=== PATIENT | female | born 1970 | race Caucasian/White ===

== ENCOUNTER 2021-07-19 23:08 | Inpatient (IN) | payer MEDICAID, SELFPAY ==
[~2021-07-19] VITALS: Ht 154.9 cm; Wt 71.7 kg
[2021-07-19 23:36] VITALS: BP_SYST 132
--- NOTE | 2021-07-20 00:21 | NUR ---
Patient ambulatory to bed 1 for evaluation
--- NOTE | 2021-07-20 00:23 | NUR ---
Patient BIB by family from home. C/O epigastric pain x 1 day. Patient reported, had epigastric pain, radiate to upper back, and vomitting since 00.30 AM yesterday.
[2021-07-20] MEDS ORDERED: NACL 0.9% 1,000 ML IV ONE (00:30)
[2021-07-20 01:14] LABS: BILIRUBIN,URINE NEGATIVE (NEGATIVE); BLOOD, URINE NEGATIVE (NEGATIVE); CLARITY/URINE CLEAR (CLEAR); COLOR,URINE YELLOW (YELLOW); GLUCOSE,URINE NEGATIVE (NEGATIVE); KETONES,URINE NEGATIVE (NEGATIVE); LEUKOCYTE ESTERASE ,URINE NEGATIVE (NEGATIVE); NITRITE, URINE NEGATIVE (NEGATIVE); PROTEIN URINE NEGATIVE (NEGATIVE)
--- NOTE | 2021-07-20 01:18 | NUR ---
ER Dr. Jacobson at bedside examining patient.
[2021-07-20 01:25] LABS: CREATININE 0.55 mg/dL (0.55-1.30); POTASSIUM 5.6 mmol/L (3.5-5.1)
[2021-07-20] MEDS ORDERED: PROCHLORPERAZINE EDISYLATE 10 MG/2 ML VIAL IVP ONE (01:30)
[2021-07-20] MEDS ORDERED: MORPHINE 4 MG INJ. 4 MG/ML VIAL IVP ONE (01:30)
[2021-07-20] MEDS ORDERED: PANTOPRAZOLE SODIUM 40 MG/VIAL (PROTONIX) IVP ONE (01:30)
[2021-07-20 01:39] LABS: ALBUMIN 4.1 g/dL (3.4-4.8); TOTAL BILIRUBIN 3.4 mg/dL (0.0-1.0)
[2021-07-20 02:43] LABS: BASOPHILS % (AUTO) 0.3 % (0.0-2.0); EOSINOPHILS # (AUTO) 0.1 K/uL (0.0-0.4); HEMATOCRIT 38.1 % (36-48); HEMOGLOBIN 13.4 g/dL (12.0-16.0); LYMPHOCYTES # (AUTO) 0.7 K/uL (1.0-5.5); LYMPHOCYTES % (AUTO) 11.5 % (20.5-51.5); MEAN CORPUSCULAR HEMOGLOBIN 30 pg (27-31); MEAN CORPUSCULAR HGB CONC 35 % (32-36); MEAN CORPUSCULAR VOLUME 84 fL (79.0-98.0); MONOCYTES # (AUTO) 0.5 K/uL (0.0-1.0); MONOCYTES % (AUTO) 9.4 % (1.7-9.3); NEUTROPHILS # (AUTO) 4.4 K/uL (1.8-7.7); NEUTROPHILS % (AUTO) 77.8 % (40.0-70.0); PLATELET COUNT (AUTO) 195 K/uL (130-430); RED BLOOD CELL COUNT(AUTO) 4.51 MIL/uL (4.2-6.2); RED CELL DISTRIBUTION WIDTH 13.9 % (9.0-15.0); WHITE BLOOD COUNT (AUTO) 5.7 K/uL (4.8-10.8)
--- NOTE | 2021-07-20 02:48 | NUR ---
Dr. Gallegos ultrasound at bedside.
--- NOTE | 2021-07-20 03:45 | NUR ---
Patient resting quietly. No acute distress noted. Vital signs within normal range.
--- NOTE | 2021-07-20 04:46 | NUR ---
Dr. Jacobson at bedside to explain results and treatment plans -admission.
[2021-07-20] MEDS ORDERED: ONDANSETRON HCL 4 MG/2 ML VIAL IVP PRN (05:15)
[2021-07-20] MEDS ORDERED: HYDROmorphone 1 MG/ML INJ. CARTRIDGE IVP PRN (05:15)
[2021-07-20] MEDS: LR 500 ML IV SCH ×3 (05:15→20:15)
--- NOTE | 2021-07-20 05:25 | NUR ---
COVID-19 swabs collected and sent to lab.
--- NOTE | 2021-07-20 06:50 | NUR ---
Patient resting quietly. No acute distress noted. Vital signs within normal range.
--- NOTE | 2021-07-20 07:06 | NUR ---
Report given to JOSE Gaytan and endorse care of patient.
--- NOTE | 2021-07-20 07:26 | NUR ---
RESUMING CARE FROM JANUARY, RN. PT IS STABLE, AWAKE, FAMILY AT BEDSIDE, ADMITTED, AWAITING COVID TEST RESULT TO BE TRANSFERRED TO THE FLOOR.
--- NOTE | 2021-07-20 08:30 | NUR ---
Called charge nurse Joyce for bed placement, stated she will call us back.
--- NOTE | 2021-07-20 09:04 | NUR ---
SECOND CALL FOR BED ASSIGNMENT
--- NOTE | 2021-07-20 09:10 | NUR ---
RECEIVED BED ASSIGNMENT. WILL GET PT READY FOR TRANSFER TO FLOOR
[2021-07-20 09:59] LABS: BASOPHILS % (AUTO) 0.5 % (0.0-2.0); EOSINOPHILS # (AUTO) 0.1 K/uL (0.0-0.4); EOSINOPHILS % (AUTO) 1.7 % (0.0-4.0); HEMATOCRIT 37.3 % (36-48); HEMOGLOBIN 13.2 g/dL (12.0-16.0); LYMPHOCYTES # (AUTO) 0.6 K/uL (1.0-5.5); LYMPHOCYTES % (AUTO) 17.5 % (20.5-51.5); MEAN CORPUSCULAR HEMOGLOBIN 30 pg (27-31); MEAN CORPUSCULAR HGB CONC 35 % (32-36); MEAN CORPUSCULAR VOLUME 85 fL (79.0-98.0); MONOCYTES # (AUTO) 0.4 K/uL (0.0-1.0); MONOCYTES % (AUTO) 10.9 % (1.7-9.3); NEUTROPHILS # (AUTO) 2.5 K/uL (1.8-7.7); NEUTROPHILS % (AUTO) 69.4 % (40.0-70.0); PLATELET COUNT (AUTO) 189 K/uL (130-430); RED CELL DISTRIBUTION WIDTH 14.5 % (9.0-15.0); WHITE BLOOD COUNT (AUTO) 3.7 K/uL (4.8-10.8)
--- NOTE | 2021-07-20 10:08 | NUR ---
REPORT GIVEN TO JOSE SINGH. PT IS STABLE, AAOx3, FAMILY AT BEDSIDE. PT TO TRANSFER TO [facility], COVID NEGATIVE, DENIES PAIN AT THIS TIME.
[2021-07-20 10:11] LABS: CALCIUM 8.6 mg/dL (8.4-11.0); CREATININE 0.63 mg/dL (0.55-1.30); POTASSIUM 3.6 mmol/L (3.5-5.1)
[2021-07-20 10:18] LABS: ALBUMIN 3.8 g/dL (3.4-4.8); TOTAL BILIRUBIN 3.4 mg/dL (0.0-1.0)
--- NOTE | 2021-07-20 10:38 | NUR ---
CONSULTATION PAGED/CALLED Reason for Consultation: [] GS Person Who was Notified: [] JENNIFER Consulting Physician: [] DR CHEN Virtual Assistant For [employer] Specialty: [] GEN SURGEON Ordering Physician: [] DR WILEY
[2021-07-20 10:42] VITALS: BP_SYST 147
--- NOTE | 2021-07-20 10:51 | NUR ---
CONSULTATION PAGED/CALLED Reason for Consultation: [] ACUTE PANCREATITIS Person Who was Notified: [] LEFT A VOICE MESSAGE IN THE OFFICE Consulting Physician: [] DR AVALOS ([id number] Town Manager Specialty: [] Ordering Physician: [] Addendum: 07/20/21 at 1059 by Kait Musa MT/ CONS SPECIALTY : IGNACIA ORDERING PHYSICIAN: DR WILEY Addendum: 07/20/21 at 1306 by Kait Musa MT/ PUT A CALL TO DR AVALOS WITH THE EXCHANGE. SPOKE TO
--- NOTE | 2021-07-20 12:31 | NUR ---
INFORMED JOSE SINGH THAT US ABD WILL BE DONE AT 1315. SPOKE TO SURAJ.
--- NOTE | 2021-07-20 14:52 | NUR ---
got to the floor via gurney, walked steady gait to the bed, denied abdominal pain, asking for food. Clear liquid offered. Lives with daughter, Tere, the main traffic operator, from whom all info obtained. Patient is Paraguayan speaking only MRI abdomen ordered, declined. " cant stand enclosed area, had it done before. Refused to get medicated with Ativan when suggested US abdomen done at the bedside, and ivf initiated at this time.
[2021-07-20 17:39] VITALS: BP_SYST 138
[2021-07-20 19:00] VITALS: BP_SYST 122
--- NOTE | 2021-07-20 19:15 | NUR ---
change of shift.pt.presents quiescent affect;calm,resting.language barrier extant;belarusian.pt.presents iv access intact;location rt.forearm. pt.capable to reposition self/ambulate unassisted.general status stable.respiratory status stable;unlabored@room air.call light/telephone w/in access of the pt.
[2021-07-20 20:00] VITALS: BP_SYST 122
--- NOTE | 2021-07-20 20:00 | NUR ---
pt.assessed.v/s assessed values wnl.no c/o pain,nausea.iv access intact iv fluids infusing.i have apprised the pt.that snacks/ beverages are available w/in the shift;w/in clear liquids parameters.no requests posited@this hour.pt.capable to reposition self. call light/telephone w/in access of the pt.
--- NOTE | 2021-07-20 22:00 | NUR ---
pt.assessed.pt.presents quiescent affect;calm,somnolent.per flacc pain mgx pt.absent facial grimaces/body posturing. iv access intact iv fluids infusing.pt capable to reposition self.call light/telephone w/in access of the pt.
[2021-07-21] VITALS: BP_SYST 126
--- NOTE | 2021-07-21 | NUR ---
pt.assessed.v/s assessed values wnl.no c/o pain,nausea.no requests posited@this hour.iv access intact iv fluids infusing. pt.capable to reposition self.call light/telephone w/in access of the pt.
[2021-07-21] MEDS: LR 500 ML IV SCH ×5 (01:15→21:15)
--- NOTE | 2021-07-21 02:00 | NUR ---
pt.assessed.pt.presents quiescent affect;calm,somnolent.per flacc pain mgx pt.absent facial grimaces/body posturing.iv access intact iv fluids infusing.pt.capable to reposition self.call light/telephone w/in access of the pt.
--- NOTE | 2021-07-21 04:00 | NUR ---
pt.assesed.pt.somnolent.iv fluids infusing.pt.capable to reposition self.call light/telephone w/in access of the pt.
--- NOTE | 2021-07-21 06:51 | NUR ---
pt.assessed.pt.presents quiescent affect;calm,resting.no c/o pain,nausea.diet status npo re-iterated to the pt. pt.to submit hida-scan.pt.capable to reposition self.call light/telephone w/in access of the pt.
[2021-07-21 08:03] LABS: BASOPHILS % (AUTO) 0.5 % (0.0-2.0); EOSINOPHILS # (AUTO) 0.1 K/uL (0.0-0.4); HEMATOCRIT 37.8 % (36-48); HEMOGLOBIN 13.6 g/dL (12.0-16.0); LYMPHOCYTES # (AUTO) 0.9 K/uL (1.0-5.5); LYMPHOCYTES % (AUTO) 25.2 % (20.5-51.5); MEAN CORPUSCULAR HEMOGLOBIN 30 pg (27-31); MEAN CORPUSCULAR HGB CONC 36 % (32-36); MEAN CORPUSCULAR VOLUME 85 fL (79.0-98.0); MONOCYTES # (AUTO) 0.3 K/uL (0.0-1.0); MONOCYTES % (AUTO) 7.6 % (1.7-9.3); NEUTROPHILS # (AUTO) 2.3 K/uL (1.8-7.7); NEUTROPHILS % (AUTO) 64.7 % (40.0-70.0); PLATELET COUNT (AUTO) 183 K/uL (130-430); RED BLOOD CELL COUNT(AUTO) 4.47 MIL/uL (4.2-6.2); RED CELL DISTRIBUTION WIDTH 14.1 % (9.0-15.0); WHITE BLOOD COUNT (AUTO) 3.6 K/uL (4.8-10.8)
[2021-07-21 08:15] VITALS: BP_SYST 134
[2021-07-21 08:54] LABS: PROTHROMBIN TIME 11.1 SECS (9.5-12.5)
[2021-07-21 09:43] LABS: CALCIUM 8.7 mg/dL (8.4-11.0); CREATININE 0.63 mg/dL (0.55-1.30); POTASSIUM 3.3 mmol/L (3.5-5.1)
[2021-07-21 09:59] LABS: ALBUMIN 3.8 g/dL (3.4-4.8)
[2021-07-21 10:09] LABS: TOTAL BILIRUBIN 1.4 mg/dL (0.0-1.0)
[2021-07-21] MEDS ORDERED: POTASSIUM CHLORIDE 40 MEQ, LIDOCAINE JECT 2% PF 100 MG 50 MG in NS 250 ML IV ONE (12:30)
[2021-07-21 17:05] VITALS: BP_SYST 146
--- NOTE | 2021-07-21 18:58 | NUR ---
End of shift: Patient is NPo during the shift for Hida scan, Dilaudid was given prn for headache, Potassium placement given. Hida scan done. Denies any pain, nausea/vomoting. Surgery seen patient. Pending lap irving on Friday. Endorse next shift to continue plan of care.
[2021-07-21 23:07] VITALS: BP_SYST 137
[2021-07-22] MEDS: LR 500 ML IV SCH ×6 (02:15→22:49)
[2021-07-22 03:05] VITALS: BP_SYST 131
[2021-07-22 09:36] LABS: ALBUMIN 3.8 g/dL (3.4-4.8); CALCIUM 8.8 mg/dL (8.4-11.0); CREATININE 0.63 mg/dL (0.55-1.30); POTASSIUM 3.7 mmol/L (3.5-5.1); TOTAL BILIRUBIN 1.4 mg/dL (0.0-1.0)
[2021-07-22 12:00] VITALS: BP_SYST 128
[2021-07-22 12:35] LABS: BASOPHILS % (AUTO) 0.4 % (0.0-2.0); EOSINOPHILS # (AUTO) 0.1 K/uL (0.0-0.4); EOSINOPHILS % (AUTO) 1.1 % (0.0-4.0); HEMATOCRIT 39.9 % (36-48); LYMPHOCYTES # (AUTO) 1.1 K/uL (1.0-5.5); LYMPHOCYTES % (AUTO) 23.4 % (20.5-51.5); MEAN CORPUSCULAR HEMOGLOBIN 30 pg (27-31); MEAN CORPUSCULAR HGB CONC 35 % (32-36); MEAN CORPUSCULAR VOLUME 86 fL (79.0-98.0); MONOCYTES # (AUTO) 0.4 K/uL (0.0-1.0); MONOCYTES % (AUTO) 7.9 % (1.7-9.3); NEUTROPHILS # (AUTO) 3.1 K/uL (1.8-7.7); NEUTROPHILS % (AUTO) 67.2 % (40.0-70.0); PLATELET COUNT (AUTO) 210 K/uL (130-430); RED BLOOD CELL COUNT(AUTO) 4.65 MIL/uL (4.2-6.2); RED CELL DISTRIBUTION WIDTH 14.2 % (9.0-15.0)
[2021-07-22 12:54] LABS: WHITE BLOOD COUNT (AUTO) 4.6 K/uL (4.8-10.8)
[2021-07-22 14:44] VITALS: BP_SYST 136
[2021-07-22 16:00] VITALS: BP_SYST 127
--- NOTE | 2021-07-22 17:35 | NUR ---
spoke to Dr berrios regarding procedure for friday with order for laparoscopic and possible open cholecystectomy tomorrow. consent signed and obtained.NPO postmidnight instructed.
[2021-07-22 20:00] VITALS: BP_SYST 132
[2021-07-23] VITALS (10 sets, daily range): BP systolic 107–140
[2021-07-23] MEDS: LR 500 ML IV SCH (03:15)
[2021-07-23 06:42] LABS: BASOPHILS % (AUTO) 0.3 % (0.0-2.0); EOSINOPHILS # (AUTO) 0.1 K/uL (0.0-0.4); HEMOGLOBIN 13.1 g/dL (12.0-16.0); LYMPHOCYTES # (AUTO) 1.4 K/uL (1.0-5.5); LYMPHOCYTES % (AUTO) 25.4 % (20.5-51.5); MEAN CORPUSCULAR HEMOGLOBIN 30 pg (27-31); MEAN CORPUSCULAR HGB CONC 36 % (32-36); MEAN CORPUSCULAR VOLUME 85 fL (79.0-98.0); MONOCYTES # (AUTO) 0.6 K/uL (0.0-1.0); MONOCYTES % (AUTO) 10.6 % (1.7-9.3); NEUTROPHILS # (AUTO) 3.4 K/uL (1.8-7.7); NEUTROPHILS % (AUTO) 61.7 % (40.0-70.0); PLATELET COUNT (AUTO) 196 K/uL (130-430); RED BLOOD CELL COUNT(AUTO) 4.35 MIL/uL (4.2-6.2); RED CELL DISTRIBUTION WIDTH 13.8 % (9.0-15.0); WHITE BLOOD COUNT (AUTO) 5.6 K/uL (4.8-10.8)
[2021-07-23 06:45] LABS: ALBUMIN 3.3 g/dL (3.4-4.8); CALCIUM 8.9 mg/dL (8.4-11.0); CREATININE 0.66 mg/dL (0.55-1.30); POTASSIUM 3.7 mmol/L (3.5-5.1); TOTAL BILIRUBIN 1.1 mg/dL (0.0-1.0)
--- NOTE | 2021-07-23 08:30 | NUR ---
0715AM: PATIENT IS RESTING IN BED QUIETLY. NO ADDITIONAL DISTRESS NOTED. CRISTELA (FAMILY MEMBER) AT THE BEDSIDE TO DO TRANSLATION. PATIENT IS JAPANESE SPEAKING ONLY. EXPLAINED PLAN OF CARE AND BOTH VERBALIZED UNDERSTANDING. ETA FOR CORRIDOR REDEVELOPMENT MANAGER FOR SURGERY IS 830AM TODAY FOR LAP TIA. BED IN LOW AND LOCK POSITION. STABLE CONDITION AT THIS. WILL CONT TO MONITOR. 0830AM: OR NURSES AT THE BEDSIDE. PATIENT LEFT THE UNIT IN STABLE CONDITION. CRISTELA WENT WITH THE PATIENT WELL.
[2021-07-23] MEDS ORDERED: BUPIVACAINE /EPINEPHRINE/PF 0.25% 30 ML VIAL INJ ONE (09:06)
[2021-07-23] MEDS ORDERED: fentaNYL CITRATE/PF 100 MCG/2 ML AMP IVP ONE (09:06)
[2021-07-23] MEDS ORDERED: LR 1,000 ML IV.SOLN IV ONE (09:06)
[2021-07-23] MEDS ORDERED: METOCLOPRAMIDE HCL 10 MG/2 ML VIAL IVP ONE (09:06)
[2021-07-23] MEDS ORDERED: GLYCOPYRROLATE 0.2 MG/ML VIAL IJ ONE (09:06)
[2021-07-23] MEDS ORDERED: SEVOFLURANE 15 MIN GAS INH ONE (09:06)
[2021-07-23] MEDS ORDERED: WATER FOR IRRIGATION,STERILE 1,000 ML IRRIG.SOLN IR ONE (09:06)
[2021-07-23] MEDS ORDERED: PHENYLEPHRINE HCL 10 MG/ML VIAL (NEOSYNEPHRINE) IV ONE (09:06)
[2021-07-23] MEDS ORDERED: ONDANSETRON HCL 4 MG/2 ML VIAL IVP ONE (09:06)
[2021-07-23] MEDS ORDERED: MIDAZOLAM HCL 5 MG/5 ML VIAL IVP ONE (09:06)
[2021-07-23] MEDS ORDERED: ROCURONIUM BROMIDE 10 MG/ML (ZEMURON) IV ONE (09:06)
[2021-07-23] MEDS ORDERED: PROPOFOL 200MG/ 20ML VIAL (DIPRIVAN) IV ONE (09:06)
[2021-07-23] MEDS ORDERED: KETOROLAC TROMETHAMINE 30 MG VIAL IVP ONE (09:06)
--- NOTE | 2021-07-23 09:57 | NUR ---
Dietitian Recommendations *Continue NPO *Recommend: advance diet when appropriate (Low Fat diet, Brijesh BID) Please see Nutritional Assessment for details. SAMI, RICHY
[2021-07-23] MEDS ORDERED: KETOROLAC TROMETHAMINE 30 MG VIAL IVP PRN (10:30)
[2021-07-23] MEDS ORDERED: HYDROmorphone 1 MG/ML INJ. CARTRIDGE IVP PRN (10:30)
[2021-07-23] MEDS ORDERED: ONDANSETRON HCL 4 MG/2 ML VIAL IVP PRN ×2 (10:30→11:30)
[2021-07-23] MEDS ORDERED: LR 1,000 ML IV SCH (10:30)
[2021-07-23] MEDS ORDERED: HYDROmorphone 2 MG/ML VIAL IVP PRN (10:30)
[2021-07-23] MEDS ORDERED: HYDROmorphone 1 MG/ML INJ. CARTRIDGE ONE (11:01)
[2021-07-23] MEDS ORDERED: NALOXONE HCL 0.4 MG/ML AMP (NARCAN) IVP PRN ×2 (11:30)
[2021-07-23] MEDS ORDERED: ACETAMINOPHEN 325 MG TABLET PO PRN (11:30)
--- NOTE | 2021-07-23 11:45 | NUR ---
1145AM: PATIENT RETURNED FROM SURGERY. PATIENT IS AAOX4. DROWSY AT THIS TIME BUT EASILY AROUSABLE. DENIES PAIN OR DISTRESS AT THIS TIME. NIECE AT THE BEDSIDE "CRISTELA". 1 MG TO THE RLQ. NOTED X3 SITE TO ABD WITH C/D/I/ DRESSING. ABD BINDER APPLIED. STABLE CONDITION AT THIS TIME. WILL CONT TO MONITOR.
[2021-07-23] MEDS: CEFAZOLIN 1 GM IVPB PREMIX 50 ML IV SCH ×2 (15:12→22:46)
[2021-07-23] MEDS: D5/0.45 NS 1,000 ML IV SCH ×2 (15:12→21:30)
[2021-07-23] MEDS: HYDROcodone/ACETAMIN 5-325 MG TAB (NORCO/ VICODIN) PO PRN (18:37)
--- NOTE | 2021-07-23 19:10 | NUR ---
1900: PATIENT TOLERATED CLEAR LIQUID DIET TODAY. NO C/O N/V. GAVE NORCO AT 1836 C/O ABD CRAMPING PAIN DUE TO PATIENT IS MOVING IN BED AND SITTING AT THE SIDE OF THE BED TO EAT. PATIENT STATES SHE HAS BEEN BURPING. CRISTELA, PATIENT'S NIECE HAS BEEN AT THE BEDSIDE THROUGHOUT THE SHIFT HELPING THE PATIENT. #1 MG TO RLQ 3ML OF SANGENOUS OUTPUT. DRESSING TO SITE HAS BEEN C/D/I. STABLE CONDITION THROUGHOUT THE SHIFT. 1909: GAVE SBAR REPORT TO MAP AND CHART MOUNTER RN. PATIENT IS RESTING IN BED QUIETLY. NO ADDITIONAL DISTRESS NOTED. STABLE CONDITION AT THIS TIME.
[2021-07-23] MEDS: HYDROmorphone 1 MG/ML INJ. CARTRIDGE IVP PRN (22:31)
[2021-07-24] MEDS: D5/0.45 NS 1,000 ML IV SCH ×3 (01:38→21:37)
[2021-07-24] MEDS: HYDROmorphone 1 MG/ML INJ. CARTRIDGE IVP PRN ×5 (03:31→21:42)
[2021-07-24 04:00] VITALS: BP_SYST 150
[2021-07-24 06:26] LABS: BASOPHILS % (AUTO) 0.2 % (0.0-2.0); EOSINOPHILS % (AUTO) 0.4 % (0.0-4.0); HEMOGLOBIN 12.4 g/dL (12.0-16.0); LYMPHOCYTES # (AUTO) 0.8 K/uL (1.0-5.5); LYMPHOCYTES % (AUTO) 12.2 % (20.5-51.5); MEAN CORPUSCULAR HEMOGLOBIN 30 pg (27-31); MEAN CORPUSCULAR HGB CONC 35 % (32-36); MEAN CORPUSCULAR VOLUME 86 fL (79.0-98.0); MONOCYTES # (AUTO) 0.7 K/uL (0.0-1.0); MONOCYTES % (AUTO) 11.4 % (1.7-9.3); NEUTROPHILS # (AUTO) 4.7 K/uL (1.8-7.7); NEUTROPHILS % (AUTO) 75.8 % (40.0-70.0); PLATELET COUNT (AUTO) 204 K/uL (130-430); RED CELL DISTRIBUTION WIDTH 13.9 % (9.0-15.0); WHITE BLOOD COUNT (AUTO) 6.2 K/uL (4.8-10.8)
[2021-07-24 06:34] LABS: ALBUMIN 3.3 g/dL (3.4-4.8); CALCIUM 8.3 mg/dL (8.4-11.0); CREATININE 0.68 mg/dL (0.55-1.30); POTASSIUM 3.3 mmol/L (3.5-5.1); TOTAL BILIRUBIN 0.9 mg/dL (0.0-1.0)
[2021-07-24 08:00] VITALS: BP_SYST 145
[2021-07-24 12:00] VITALS: BP_SYST 142
[2021-07-24 16:00] VITALS: BP_SYST 135
[2021-07-24] MEDS ORDERED: POTASSIUM CHLORIDE 20 MEQ TAB.PRT.SR PO ONE (16:15)
--- NOTE | 2021-07-24 19:20 | NUR ---
PATIENT RESTING IN BED, AAO x4, DENIES PAIN/DISCOMFORT AT THIS TIME. RESPIRATIONS EVEN AND UL ON RA. MEDICATED AT 1900 WITH ZOFRAN FOR NAUSEA. MG TO RLQ, 5ML OUTPUT NOTED. ABD BINDER IN PLACE OVER ABD INCISIONS, DRESSINGS CDI. IVF INFUSING TO RH, IV SITE WNL. BED IN LOW, CALL LIGHT IN REACH, SAFETY MEASURES IN PLACE. DAUGHTER AT BEDSIDE. ENDORSED TO PM NURSE FOR CONTINUITY OF CARE.
[2021-07-24 20:00] VITALS: BP_SYST 152
[2021-07-25 00:02] VITALS: BP_SYST 148
[2021-07-25] MEDS: HYDROmorphone 1 MG/ML INJ. CARTRIDGE IVP PRN ×3 (01:46→13:27)
[2021-07-25] MEDS: D5/0.45 NS 1,000 ML IV SCH ×2 (05:31→18:45)
[2021-07-25 07:25] LABS: BASOPHILS % (AUTO) 0.3 % (0.0-2.0); EOSINOPHILS % (AUTO) 0.8 % (0.0-4.0); HEMATOCRIT 36.8 % (36-48); HEMOGLOBIN 12.8 g/dL (12.0-16.0); LYMPHOCYTES # (AUTO) 1.3 K/uL (1.0-5.5); LYMPHOCYTES % (AUTO) 24.2 % (20.5-51.5); MEAN CORPUSCULAR HEMOGLOBIN 30 pg (27-31); MEAN CORPUSCULAR HGB CONC 35 % (32-36); MEAN CORPUSCULAR VOLUME 85 fL (79.0-98.0); MONOCYTES # (AUTO) 0.5 K/uL (0.0-1.0); MONOCYTES % (AUTO) 9.8 % (1.7-9.3); NEUTROPHILS # (AUTO) 3.4 K/uL (1.8-7.7); NEUTROPHILS % (AUTO) 64.9 % (40.0-70.0); PLATELET COUNT (AUTO) 201 K/uL (130-430); RED CELL DISTRIBUTION WIDTH 13.7 % (9.0-15.0); WHITE BLOOD COUNT (AUTO) 5.3 K/uL (4.8-10.8)
[2021-07-25] MEDS ORDERED: INDOMETHACIN 50 MG SUPP.RECT RC ONE (07:30)
[2021-07-25 08:00] VITALS: BP_SYST 144
[2021-07-25 08:05] LABS: ALBUMIN 3.5 g/dL (3.4-4.8); CALCIUM 8.9 mg/dL (8.4-11.0); CREATININE 0.6 mg/dL (0.55-1.30); POTASSIUM 3.8 mmol/L (3.5-5.1); TOTAL BILIRUBIN 0.6 mg/dL (0.0-1.0)
--- NOTE | 2021-07-25 08:10 | NUR ---
Pt went for ERCP.
[2021-07-25] MEDS ORDERED: METOCLOPRAMIDE HCL 10 MG/2 ML VIAL IVP ONE (08:34)
[2021-07-25] MEDS ORDERED: GLYCOPYRROLATE 0.2 MG/ML VIAL IJ ONE (08:34)
[2021-07-25] MEDS ORDERED: PROPOFOL 200MG/ 20ML VIAL (DIPRIVAN) IV ONE (08:34)
[2021-07-25] MEDS ORDERED: SUCCINYLCHOLINE CHLORIDE 20 MG/ML(QUELICIN) IVP ONE (08:34)
[2021-07-25] MEDS ORDERED: NS 1000 ML IV.SOLN IV ONE (08:34)
[2021-07-25] MEDS ORDERED: KETOROLAC TROMETHAMINE 30 MG VIAL IVP ONE (08:34)
[2021-07-25] MEDS ORDERED: MIDAZOLAM HCL 5 MG/5 ML VIAL IVP ONE (08:34)
[2021-07-25] MEDS ORDERED: LIDOCAINE 1% 10 MG/ML, 20 ML MDV INJ ONE (08:34)
[2021-07-25] MEDS ORDERED: ROCURONIUM BROMIDE 10 MG/ML (ZEMURON) IV ONE (08:34)
[2021-07-25] MEDS ORDERED: SEVOFLURANE 15 MIN GAS INH ONE (08:34)
[2021-07-25] MEDS ORDERED: PHENYLEPHRINE HCL 10 MG/ML VIAL (NEOSYNEPHRINE) IV ONE (08:34)
[2021-07-25] MEDS ORDERED: ONDANSETRON HCL 4 MG/2 ML VIAL IVP ONE (08:34)
[2021-07-25] MEDS ORDERED: KETOROLAC TROMETHAMINE 30 MG VIAL IVP PRN (10:30)
[2021-07-25] MEDS ORDERED: HYDROmorphone 1 MG/ML INJ. CARTRIDGE IVP PRN (10:30)
[2021-07-25] MEDS ORDERED: HYDROmorphone 2 MG/ML VIAL IVP PRN (10:30)
[2021-07-25] MEDS ORDERED: ONDANSETRON HCL 4 MG/2 ML VIAL IVP PRN (10:30)
[2021-07-25] MEDS ORDERED: LR 1,000 ML IV SCH (10:30)
[2021-07-25] MEDS ORDERED: hydrALAZINE HCL 20 MG/ML VIAL ONE (11:45)
[2021-07-25] MEDS ORDERED: hydrALAZINE HCL 20 MG/ML VIAL IVP ONE (11:45)
[2021-07-25 12:15] VITALS: BP_SYST 146
--- NOTE | 2021-07-25 12:15 | NUR ---
Received pt from OR awake, pain is controlled. s/p ERCP. No distress will monitor.
--- NOTE | 2021-07-25 12:47 | NUR ---
assisted to the bathroom and voided.
--- NOTE | 2021-07-25 12:47 | NUR ---
report given for continuity of care.
--- NOTE | 2021-07-25 13:16 | NUR ---
Received report from Odalis Lujan/JOSE for continuity Addendum: 07/25/21 at 1317 by Joleen Chowdhury RN of care
--- NOTE | 2021-07-25 13:27 | NUR ---
Opening Notes/Dilaudid Patient is awake, alert and oriented x4. Yakut speaking only, able to follow simple commands. Sister by bedside for translation. No resp distress noted. Breathing is even and unlabored. Pt remains on RA. Pt is c/o 8/10 general body pain, joey abdominal area. Administered Dilaudid 1 mg IVP at 1327, tolerated well. IV site on right hand/thumb 22 gauge intact at this time. D5 1/2 NS @ 100 cc/hr, infusing well. Pt reports passing flatus and urinating s/p ERCP. MG drain noted on right lower lateral abdomen, serous output noted, emptied out 20 cc. Pt is ambulatory, steady gait. All needs met at this time. Safety and fall precautions in place. Bed in lowest position, locked. Will continue to monitor.
--- NOTE | 2021-07-25 14:00 | NUR ---
Notes Patient is sleeping at this time. NO resp distress. No signs of pain. Will continue to monitor.
--- NOTE | 2021-07-25 16:00 | NUR ---
Notes Patient is sitting up at the side of the bed. No resp distress noted. Breathing is even and unlabored. Pt reports relief from pain medication earlier. Pt is ambulating throughout hallway with sister, steady gait. Will continue to monitor.
--- NOTE | 2021-07-25 18:15 | NUR ---
Notes Patient is laying in bed, sister by bedside. No resp distress noted. Breathing is even and unlabored. No signs of pain. Will continue to monitor.
[2021-07-25] MEDS: HYDROcodone/ACETAMIN 5-325 MG TAB (NORCO/ VICODIN) PO PRN ×2 (18:45→22:49)
--- NOTE | 2021-07-25 19:00 | NUR ---
Report received from Freida Llanos. Pt is awake alert and oriented x4. Vital signs stable, denies pain at this time. Sister Malia at bedside to attend to patient needs and to translate for patient. Patient peripheral iv to left thumb with redness and pain to touch. Attempted to restart an iv line x2 by Miles LLANOS without any success. Pt refused to have iv restarted at this time. States:"I will drink more fluids instead and take Flanagan tablet for the pain instead. Will try to restart iv when pt agrees. Assuming care for pt.
--- NOTE | 2021-07-25 19:03 | NUR ---
Closing Notes Patient is awake, alert and oriented x4. No resp distress noted. Breathing is even and unlabored. Pt is c/o 7/10 gen body pain. Administered [place] 5/325 mg PO at 1845, tolerated well. IV site on right hand 20 gauge is "burning" while being flushed. Nurse attempted IV access x2, unsuccessful. Will endorse to next shift to attempt another line. IVF: D5 1/2 NS @ 100 cc/hr, on pause for now. Will endorse to restart IVF. Pt is ambulatory, steady gait. MG drain output: 60 cc total, serous color. Abdominal incisions are C/D/I. All needs met at this time. Safety and fall precautions in place. Bed in lowest position, locked. Will continue to monitor.
[2021-07-25 20:27] VITALS: BP_SYST 151
--- NOTE | 2021-07-25 22:00 | NUR ---
Pt remains stable. emptied Angel drain with 40cc of serosanguineous output noted. Abdominal binder in place. Established patent iv to left hand #20gauge. Restarted iv fluids. Will closely monitor pt.
[2021-07-25 22:49] VITALS: BP_SYST 139
[2021-07-26 00:28] VITALS: BP_SYST 137
[2021-07-26 06:31] VITALS: BP_SYST 146
[2021-07-26] MEDS: HYDROcodone/ACETAMIN 5-325 MG TAB (NORCO/ VICODIN) PO PRN ×3 (06:31→20:45)
--- NOTE | 2021-07-26 07:25 | NUR ---
Nurse knowledge exhange completed with [place]. Pt remains confused with frequent re orientation needed, vs stable, no acute distress, tolerates liquid diet, brp, [place] given for pain with pain relief.
--- NOTE | 2021-07-26 08:00 | NUR ---
A/Ox4, on room air. IV on right FA, #20, site intact and patent. Ambulatory. MG drain on the right abdomen, with reddish straw color fluid. Call light in place, bed locked at the lowest position, will continue to monitor.
[2021-07-26 09:05] LABS: BASOPHILS % (AUTO) 0.4 % (0.0-2.0); EOSINOPHILS # (AUTO) 0.1 K/uL (0.0-0.4); EOSINOPHILS % (AUTO) 2.1 % (0.0-4.0); HEMOGLOBIN 12.5 g/dL (12.0-16.0); LYMPHOCYTES # (AUTO) 0.6 K/uL (1.0-5.5); LYMPHOCYTES % (AUTO) 16.3 % (20.5-51.5); MEAN CORPUSCULAR HEMOGLOBIN 30 pg (27-31); MEAN CORPUSCULAR HGB CONC 35 % (32-36); MEAN CORPUSCULAR VOLUME 85 fL (79.0-98.0); MONOCYTES # (AUTO) 0.5 K/uL (0.0-1.0); MONOCYTES % (AUTO) 12.8 % (1.7-9.3); NEUTROPHILS # (AUTO) 2.6 K/uL (1.8-7.7); NEUTROPHILS % (AUTO) 68.4 % (40.0-70.0); PLATELET COUNT (AUTO) 207 K/uL (130-430); RED BLOOD CELL COUNT(AUTO) 4.23 MIL/uL (4.2-6.2); RED CELL DISTRIBUTION WIDTH 14.1 % (9.0-15.0); WHITE BLOOD COUNT (AUTO) 3.9 K/uL (4.8-10.8)
[2021-07-26 09:45] LABS: ALBUMIN 3.3 g/dL (3.4-4.8); CALCIUM 8.6 mg/dL (8.4-11.0); CREATININE 0.67 mg/dL (0.55-1.30); POTASSIUM 3.2 mmol/L (3.5-5.1); TOTAL BILIRUBIN 3.7 mg/dL (0.0-1.0)
--- NOTE | 2021-07-26 10:00 | NUR ---
PATIENT IS RESTING AT THIS TIME.
[2021-07-26] MEDS: D5/0.45 NS 1,000 ML IV SCH ×2 (10:45→22:59)
[2021-07-26 11:23] VITALS: BP_SYST 153
[2021-07-26] MEDS ORDERED: POTASSIUM CHLORIDE 20 MEQ TAB.PRT.SR PO ONE (12:15)
--- NOTE | 2021-07-26 12:30 | NUR ---
DR. WILEY IS AT BEDSIDE ASSESSING THE PATIENT. POC IS ALSO DISCUSSED.
--- NOTE | 2021-07-26 13:35 | NUR ---
patient c/o right upper abdominal pain, 5-610. [place] 5 is given. Will reassess.
[2021-07-26 15:26] VITALS: BP_SYST 145
[2021-07-26 20:32] VITALS: BP_SYST 140
[2021-07-27] MEDS: HYDROcodone/ACETAMIN 5-325 MG TAB (NORCO/ VICODIN) PO PRN ×2 (01:58→12:31)
[2021-07-27] MEDS: D5/0.45 NS 1,000 ML IV SCH ×2 (05:30→15:30)
--- NOTE | 2021-07-27 06:31 | NUR ---
Pt had pain which was relieved after removing binder which was too small. Pt explained that she was getting up to the restroom constantly which was also causing more discomfort so pt requested IVF to be paused until her pain was under better control. Pt left comfortable. No acute distress noted. Spoke with Dr. Mackey and gave update regarding elevated LFTs. No further orders at this time. New IV placed to right AC #20, all needs met, will endorse at change of shift.
[2021-07-27 06:34] LABS: BASOPHILS % (AUTO) 0.3 % (0.0-2.0); EOSINOPHILS # (AUTO) 0.1 K/uL (0.0-0.4); EOSINOPHILS % (AUTO) 2.1 % (0.0-4.0); HEMATOCRIT 36.2 % (36-48); HEMOGLOBIN 12.6 g/dL (12.0-16.0); LYMPHOCYTES # (AUTO) 0.5 K/uL (1.0-5.5); MEAN CORPUSCULAR HEMOGLOBIN 30 pg (27-31); MEAN CORPUSCULAR HGB CONC 35 % (32-36); MEAN CORPUSCULAR VOLUME 85 fL (79.0-98.0); MONOCYTES # (AUTO) 0.4 K/uL (0.0-1.0); MONOCYTES % (AUTO) 8.8 % (1.7-9.3); NEUTROPHILS % (AUTO) 79.8 % (40.0-70.0); PLATELET COUNT (AUTO) 218 K/uL (130-430); RED BLOOD CELL COUNT(AUTO) 4.25 MIL/uL (4.2-6.2); RED CELL DISTRIBUTION WIDTH 14.2 % (9.0-15.0); WHITE BLOOD COUNT (AUTO) 5.1 K/uL (4.8-10.8)
[2021-07-27 07:04] LABS: ALBUMIN 3.2 g/dL (3.4-4.8); CALCIUM 8.6 mg/dL (8.4-11.0); CREATININE 0.5 mg/dL (0.55-1.30); POTASSIUM 3.4 mmol/L (3.5-5.1); TOTAL BILIRUBIN 5.4 mg/dL (0.0-1.0)
[2021-07-27 08:00] VITALS: BP_SYST 152
--- NOTE | 2021-07-27 08:00 | NUR ---
Initial Note Patient sitting up in chair awake, alert, and oriented x 4. Taiwanese speaking. Reports pain 10/10 to right flank. MG drain in place to right lateral flank draining 60 mL of pinkish-yellow drainage. Abdominal binder in place. No acute distress noted. Ambulatory without assist. Will review pain medications and administer as ordered. Call light and bedside table within reach. Encouraged to call.
--- NOTE | 2021-07-27 08:45 | NUR ---
Pain Medication Administration Administered Dilaudid 1 mg IVP per MD order at 0845 for pain 06/17 but did not save in computer; documented at 9635.
--- NOTE | 2021-07-27 09:00 | NUR ---
Notes Patient refusing IV fluids at this time. Educated on use and benefits, patient continues to refuse. Will continue to monitor, educate and will notify MD.
[2021-07-27] MEDS: DOCUSATE SODIUM 100 MG CAPSULE PO SCH ×2 (10:30→21:16)
[2021-07-27] MEDS: POLYETHYLENE GLYCOL 3350, 17 GM/ POWD.PACK PO SCH (10:30)
[2021-07-27] MEDS: HYDROmorphone 1 MG/ML INJ. CARTRIDGE IVP PRN (11:05)
[2021-07-27 11:22] VITALS: BP_SYST 136
--- NOTE | 2021-07-27 11:30 | NUR ---
Notes Patient resting in bed without pain or distress. Will continue to monitor.
[2021-07-27] MEDS ORDERED: DOCUSATE SODIUM 100 MG CAPSULE PO ONE (13:15)
[2021-07-27] MEDS ORDERED: POLYETHYLENE GLYCOL 3350, 17 GM/ POWD.PACK PO ONE (13:15)
--- NOTE | 2021-07-27 15:00 | NUR ---
Notes Patient accepts IVF at this time as ordered.
[2021-07-27 15:33] VITALS: BP_SYST 159
--- NOTE | 2021-07-27 16:35 | NUR ---
Notes Patient sitting up in chair. Daughter at bedside. No pain or distress noted. IVF running as ordered. Call light, shoes, and belongings within reach. Encouraged to call.
--- NOTE | 2021-07-27 17:01 | NUR ---
Nutrition F/U RD reviewed pt's current EMR record including diet Hx, physician notes, nursing notes, pertinent labs/meds/procedures, care trends, and care activity. Admission Dx: Pancreatitis PMH: Pt w/: Acute GS Pancreatitis, Elevated LFT per MD notes. SARS-CoV-2 Ag (Rapid) Negative 07/20 Current Diet Order/Nutrition Support: regular, low-fat x1 day Subjective Info: RD bedside visit deferred d/t high RD load/lack of time. Per EMR review, pt is POD 4 s/p lap irving and POD 2 s/p ERCP and extraction of multiple stones in the CBW; PO intake average of 54% x4 meals; abd is soft/distended/tender w/ active bowel sounds; last BM x1 07/25; Vishal scale: 22 w/ lower abd Sx incision. Pt may benefit from additional nutritional supplementation to aid in wound healing. Pertinent Medications: zofran Pertinent Labs: Na 140 WNL, K 3.4 L, BG 119 H, BUN 4 L, CRE 0.5 L, AST 305 H, ALT 431 H Height (Feet) 5 feet Height (Inches) 1.00 inches Weight (Pounds) 158 pounds -- stable since 07/23 Weight (Calculated Kilograms) 71.136139 kilograms Patient Weight 71.668 kg Body Mass Index 29.85 kg/m2 %IBW 150 [place]/Adjusted Body Weight 105#/ 48kg; Adj IBW: 118#/ 54kg Estimated Energy Expenditure (kcals/day) 6012-9360 (25-30 kcal/kg Adj IBW for maintenance) Estimated Protein Required (g/day) 65 (1.2 gm/kg Adj IBW for post-op Sx) Estimated Fluid Required (l/day) 1.6 (30ml/kg Adj IBW for maintenance) Problem/Etiology/Signs/Symptoms Predicted suboptimal nutrient intake r/t diet order AEB PO intake meets <754% of est needs on clear liquid diet x3 days, NPO. *improving while on solid PO diet Expected Outcomes/Goals Monitor diet advancement, appetite and PO intake w/ goal of pt meeting more than 75% of estimated nutritional needs, labs trending WNL, normal GI function, skin integrity/wt maintenance. Dietitian Recommendations * Low-fat diet w/ Ensure High Protein TID, Brijesh BID (supplements provide 660 kcal/day, 53 gm protein/day) * Encourage increase PO intakes Follow Up High Risk: F/U in 2-3 days
--- NOTE | 2021-07-27 17:07 | NUR ---
Dietitian Recommendations * Low-fat diet w/ Ensure High Protein TID, Brijesh BID (supplements provide 660 kcal/day, 53 gm protein/day) * Encourage increase PO intakes LP, RD Please refer to Nutrition F/U for details.
[2021-07-27] MEDS: PIPERACILLIN/TAZO 3.375/DEX-IS 50 ML IV SCH (18:36)
--- NOTE | 2021-07-27 18:39 | NUR ---
Closing Note Patient sitting up in chair, states pain is controlled. No distress noted. Daughter at bedside. IVF and antibiotic running as ordered. Abdominal binder in place. Call light and bedside table in reach. Bed locked in lowest position for transfer back to bed. Encouraged to call. Will endorse to night nurse.
[2021-07-27 20:00] VITALS: BP_SYST 128
--- NOTE | 2021-07-27 20:00 | NUR ---
Received pt in bed, verbally responsive and able to make needs known. No signs of distress. Breathing adequately on RA. Noted ambulating to restroom; Safety precautions observed. IVF running as ordered. No signs of infiltration noted to PIV site. Denies any pain/discomfort at this time. MG drain to R low abd being monitored. Call light within reach. Bed in low position.
[2021-07-28] MEDS: PIPERACILLIN/TAZO 3.375/DEX-IS 50 ML IV SCH ×4 (00:11→18:08)
[2021-07-28] MEDS: D5/0.45 NS 1,000 ML IV SCH ×3 (00:39→21:55)
[2021-07-28 01:27] VITALS: BP_SYST 129
[2021-07-28 04:00] VITALS: BP_SYST 124
--- NOTE | 2021-07-28 06:33 | NUR ---
CLOSING NOTE Pt noted up in chair, verbally responsive and able to make needs known. No apparent signs of distress. Breathing adequately on RA. Denies any pain/discomfort at this time. MG drain to R Lower abd drained;100 cc of yellow/reddish fluid noted. Suction applied to bulb. Call light within reach.
[2021-07-28 07:49] LABS: BASOPHILS % (AUTO) 0.5 % (0.0-2.0); EOSINOPHILS # (AUTO) 0.1 K/uL (0.0-0.4); EOSINOPHILS % (AUTO) 3.4 % (0.0-4.0); HEMATOCRIT 36.4 % (36-48); HEMOGLOBIN 12.6 g/dL (12.0-16.0); LYMPHOCYTES # (AUTO) 0.7 K/uL (1.0-5.5); LYMPHOCYTES % (AUTO) 15.9 % (20.5-51.5); MEAN CORPUSCULAR HEMOGLOBIN 30 pg (27-31); MEAN CORPUSCULAR HGB CONC 35 % (32-36); MEAN CORPUSCULAR VOLUME 86 fL (79.0-98.0); MONOCYTES # (AUTO) 0.4 K/uL (0.0-1.0); MONOCYTES % (AUTO) 8.2 % (1.7-9.3); NEUTROPHILS # (AUTO) 3.1 K/uL (1.8-7.7); PLATELET COUNT (AUTO) 204 K/uL (130-430); RED BLOOD CELL COUNT(AUTO) 4.23 MIL/uL (4.2-6.2); RED CELL DISTRIBUTION WIDTH 14.2 % (9.0-15.0); WHITE BLOOD COUNT (AUTO) 4.3 K/uL (4.8-10.8)
[2021-07-28 08:00] VITALS: BP_SYST 149
--- NOTE | 2021-07-28 08:15 | NUR ---
Initial Note Patient awake, alert, and oriented x 4. Denies pain, no distress observed. Abdominal binder in place. MG drain in place to right lateral lower abdomen. Patient ambulatory without assist. Call light, bedside table, and belongings within reach. Bed in lowest position. Encouraged to call.
[2021-07-28] MEDS: POLYETHYLENE GLYCOL 3350, 17 GM/ POWD.PACK PO SCH (08:59)
[2021-07-28] MEDS: DOCUSATE SODIUM 100 MG CAPSULE PO SCH ×2 (08:59→21:54)
[2021-07-28 09:45] LABS: ALBUMIN 2.8 g/dL (3.4-4.8); CALCIUM 8.4 mg/dL (8.4-11.0); CREATININE 0.56 mg/dL (0.55-1.30); POTASSIUM 3.3 mmol/L (3.5-5.1); TOTAL BILIRUBIN 3.3 mg/dL (0.0-1.0)
[2021-07-28 12:00] VITALS: BP_SYST 134
--- NOTE | 2021-07-28 12:00 | NUR ---
Notes Patient ambulating in the [place]ott with sister Malia. Denies pain, no distress. Addressed needs. Patient states feeling better. Will continue to monitor. Encouraged patient to call as needed.
[2021-07-28] MEDS ORDERED: POTASSIUM CHLORIDE 20 MEQ TAB.PRT.SR PO ONE (12:30)
[2021-07-28 16:22] VITALS: BP_SYST 146
--- NOTE | 2021-07-28 16:31 | NUR ---
Notes Patient resting in bed, sister at bedside. No pain or distress reported or observed. Call light, bedside table, and belongings in reach. Bed in lowest position. Encouraged to call.
--- NOTE | 2021-07-28 18:53 | NUR ---
Closing Note Patient ambulating to restroom. No pain or distress observed or reported. Per MD, will discharge home tomorrow if labs continue to trend toward normal limits. MG drain may stay in place and discontinued in outpatient/office setting per Dr. Sullivan. Safety precautions in place; bed locked in lowest position. Call light, bedside table, and belongings within reach. Encouraged to call. Will endorse to night nurse.
--- NOTE | 2021-07-28 19:45 | NUR ---
initial notes: pt is awake, alert, oriented x 4. no complain of pain,no sob, stable vital sign, ivf infusig well, kip drain with clear yellowish fluid, ambulatory with steady gait. 3 incision dressing clear dry and intact. discuss pa of care. pt agree, needs attended call light in reach. will followup.
[2021-07-28 19:48] VITALS: BP_SYST 137
--- NOTE | 2021-07-29 | NUR ---
sleeping, no pain. comfortable. stable. ivf infusing well.
[2021-07-29] MEDS: PIPERACILLIN/TAZO 3.375/DEX-IS 50 ML IV SCH ×5 (00:01→23:22)
[2021-07-29 00:04] VITALS: BP_SYST 108
[2021-07-29] MEDS: D5/0.45 NS 1,000 ML IV SCH ×2 (06:08→16:28)
--- NOTE | 2021-07-29 06:40 | NUR ---
closing: pt is awake, alert, oriented x 4 no sign of pain, not distress.assisted to bathroom steady gait, back to bed.ivf infusing well-intact and patent. clean and dry, kip drain cleared with drainage.safety precaution in place. low bed position. side rails up x 3, will continue to monitor the pt, until sbar reporting given to am rn.
[2021-07-29 07:05] LABS: BASOPHILS % (AUTO) 0.4 % (0.0-2.0); EOSINOPHILS # (AUTO) 0.3 K/uL (0.0-0.4); HEMATOCRIT 36.9 % (36-48); HEMOGLOBIN 12.9 g/dL (12.0-16.0); LYMPHOCYTES % (AUTO) 22.7 % (20.5-51.5); MEAN CORPUSCULAR HEMOGLOBIN 30 pg (27-31); MEAN CORPUSCULAR HGB CONC 35 % (32-36); MEAN CORPUSCULAR VOLUME 86 fL (79.0-98.0); MONOCYTES # (AUTO) 0.3 K/uL (0.0-1.0); NEUTROPHILS # (AUTO) 2.7 K/uL (1.8-7.7); NEUTROPHILS % (AUTO) 62.9 % (40.0-70.0); PLATELET COUNT (AUTO) 221 K/uL (130-430); WHITE BLOOD COUNT (AUTO) 4.4 K/uL (4.8-10.8)
[2021-07-29 07:37] LABS: CALCIUM 8.6 mg/dL (8.4-11.0); CREATININE 0.67 mg/dL (0.55-1.30); POTASSIUM 3.7 mmol/L (3.5-5.1); TOTAL BILIRUBIN 1.2 mg/dL (0.0-1.0)
[2021-07-29 08:00] VITALS: BP_SYST 133
--- NOTE | 2021-07-29 08:00 | NUR ---
Initial notes walking in the hallway, pain is control. Denies any nausea or vomiting, had bowel movement. IVF infusing well. Enc to call for help as needed.
[2021-07-29] MEDS: DOCUSATE SODIUM 100 MG CAPSULE PO SCH ×2 (08:57→22:38)
[2021-07-29] MEDS: POLYETHYLENE GLYCOL 3350, 17 GM/ POWD.PACK PO SCH (08:58)
[2021-07-29 10:29] VITALS: BP_SYST 133
[2021-07-29 12:11] VITALS: BP_SYST 122
[2021-07-29 16:16] VITALS: BP_SYST 130
--- NOTE | 2021-07-29 18:19 | NUR ---
closing notes No change assessment, ambulates in the hallway. No distress
[2021-07-29 20:00] VITALS: BP_SYST 125
[2021-07-30 01:08] VITALS: BP_SYST 125
[2021-07-30] MEDS: D5/0.45 NS 1,000 ML IV SCH ×2 (03:31→05:43)
[2021-07-30] MEDS: PIPERACILLIN/TAZO 3.375/DEX-IS 50 ML IV SCH ×2 (05:35→11:52)
[2021-07-30 06:47] LABS: BASOPHILS % (AUTO) 0.6 % (0.0-2.0); EOSINOPHILS # (AUTO) 0.2 K/uL (0.0-0.4); EOSINOPHILS % (AUTO) 4.7 % (0.0-4.0); HEMOGLOBIN 13.1 g/dL (12.0-16.0); LYMPHOCYTES # (AUTO) 1.2 K/uL (1.0-5.5); LYMPHOCYTES % (AUTO) 24.1 % (20.5-51.5); MEAN CORPUSCULAR HEMOGLOBIN 30 pg (27-31); MEAN CORPUSCULAR HGB CONC 35 % (32-36); MEAN CORPUSCULAR VOLUME 86 fL (79.0-98.0); MONOCYTES # (AUTO) 0.4 K/uL (0.0-1.0); MONOCYTES % (AUTO) 8.3 % (1.7-9.3); NEUTROPHILS % (AUTO) 62.3 % (40.0-70.0); PLATELET COUNT (AUTO) 233 K/uL (130-430); RED BLOOD CELL COUNT(AUTO) 4.43 MIL/uL (4.2-6.2); RED CELL DISTRIBUTION WIDTH 13.9 % (9.0-15.0); WHITE BLOOD COUNT (AUTO) 4.9 K/uL (4.8-10.8)
[2021-07-30 07:27] LABS: ALBUMIN 3.2 g/dL (3.4-4.8); CALCIUM 8.8 mg/dL (8.4-11.0); CREATININE 0.62 mg/dL (0.55-1.30); POTASSIUM 3.7 mmol/L (3.5-5.1); TOTAL BILIRUBIN 1.1 mg/dL (0.0-1.0)
[2021-07-30 08:00] VITALS: BP_SYST 125
--- NOTE | 2021-07-30 08:00 | NUR ---
Morning rounds: Pt sitting in chair after walking in the bathroom. No s/s of respiratory distress. Denies any nausea or vomiting or pain. IVF infusing well. Educated how to use IS and to call for help as needed.
[2021-07-30] MEDS: DOCUSATE SODIUM 100 MG CAPSULE PO SCH (09:00)
[2021-07-30] MEDS: POLYETHYLENE GLYCOL 3350, 17 GM/ POWD.PACK PO SCH (09:00)
[2021-07-30] MEDS ORDERED: AMOX-426 PO (13:46)
[2021-07-30] MEDS ORDERED: LACT1TAB14 PO (13:47)
[2021-07-30 14:28] VITALS: BP_SYST 138
--- NOTE | 2021-07-30 14:42 | NUR ---
D/C Patient Patient given medication reconciliation form and D/C instructions. Exit Care provided. Patient verbalized understanding. MD discussed with patient the results and treatment provided. Ambulatory with steady gait for discharge to home. Patient in stable condition, ID band removed. IV catheter removed, intact and dressing applied, no active bleeding. Rx of escript sent to preferred pharmacy by MD. Patient educated on pain management. All belongings sent with patient.
== END 2021-07-30 14:42 | disposition home or self-care (01) | DRG 263 ==
LOC: SED 23:08 → SMU 07-20 05:14
PROVIDERS: ADMIT Internal Medicine; ATTEND Internal Medicine
PROC: 3E1M38Z Irrigation of Peritoneal Cavity using Irrigating Substance, Percutaneous Approach (ICD-10-PCS; 2021-07-23)
PROC: BF131ZZ Fluoroscopy of Gallbladder and Bile Ducts using Low Osmolar Contrast (ICD-10-PCS; 2021-07-23)
PROC: 0FT44ZZ Resection of Gallbladder, Percutaneous Endoscopic Approach (ICD-10-PCS; principal; 2021-07-23 09:06)
PROC: 0F798ZZ Dilation of Common Bile Duct, Via Natural or Artificial Opening Endoscopic (ICD-10-PCS; 2021-07-25)
PROC: 0FC98ZZ Extirpation of Matter from Common Bile Duct, Via Natural or Artificial Opening Endoscopic (ICD-10-PCS; 2021-07-25)
DX: K85.10 Biliary acute pancreatitis without necrosis or infection (principal); K80.62 Calculus of gallbladder and bile duct with acute cholecystitis without obstruction; F03.90 Unspecified dementia, unspecified severity, without behavioral disturbance, psychotic disturbance, mood disturbance, and anxiety; D25.9 Leiomyoma of uterus, unspecified; E86.0 Dehydration; N39.0 Urinary tract infection, site not specified; F40.240 Claustrophobia; E87.6 Hypokalemia; R17 Unspecified jaundice; Z20.822 Contact with and (suspected) exposure to COVID-19; Z98.891 History of uterine scar from previous surgery
CPT/HCPCS: 36415; 71045; 74300; 76000; 76376; 76700-TC; 78226; 80053; 80061; 81003; 82962; 83690; 83735; 84703; 85025; 85610-TC; 85730-TC; 87086; 88304; 93005; 94010; 94760; 96361; 96374; 96375; 99285; A9537; C1727; C1769; C9113; J0330; J0360; J0690; J0780; J1170; J1885; J2001; J2250; J2270; J2370; J2405; J2543; J2704; J2765; J3010; J3480; J3490; J7030; J7050; J7120; Q9967